=== PATIENT | male | born 1955 | race Caucasian/White ===

== ENCOUNTER 2018-06-20 16:37 | Emergency (ER) | payer MEDICARE, BC ==
[2018-06-20 17:02] VITALS: BP 121/74; PULSE 66; O2SAT 96
[2018-06-20] MEDS ORDERED: Adacel Vial IM ONE ×2 (17:09→17:22)
--- NOTE | 2018-06-20 17:12 | ERPHSYRPT ---
- History of Present Illness Time Seen by Provider: 06/20/18 17:01 Source: patient Exam Limitations: no limitations Patient Subjective Stated Complaint: left knife on top of 15 foot ladder and started to go up after it and the knife fell down and landed in his left forearm Triage Nursing Assessment: Pt c/o of a laceration on his left forearm due to a knife falling off of a ladder and landing in his arm, approx 1 cm laceration with minimal bleeding, denies any other issues at this time Physician History: 62-year-old white male arrives with complaint of laceration to the left mid forearm since just prior to arrival. According to the patient he had a knife on top of a ladder which fell approximately 15 feet and struck him on the left forearm. Patient has approximately 1.5 cm laceration to the left mid forearm anteriorly and towards the radial aspect. He has full range of motion to his left hand wrist elbow and shoulder. Good capillary refill to all fingers. Sensation intact to all fingers. Past medical history includes a fall with multiple fractures and rib fractures in the distant past. Last tetanus patient states 12 years old. Occurred: just prior to arrival Method of Injury: other (knife fell and lacerated patient's left forearm) Severity of Pain-Max: mild Severity of Pain-Current: mild Extremities Pain Location: forearm: left Modifying Factors: Improves With: nothing Associated Symptoms: none Allergies/Adverse Reactions: No Known Drug Allergies Allergy (Verified 06/20/18 17:03) Home Medications: Lisinopril 10 mg [Zestril 10 MG] 10 mg PO DAILY 06/20/18 [History] Hx Tetanus, Diphtheria Vaccination/Date Given: No - Review of Systems Constitutional: No Fever, No Chills Eyes: No Symptoms Ears, Nose, & Throat: No Symptoms Respiratory: No Cough, No Dyspnea Cardiac: No Chest Pain, No Edema, No Syncope Abdominal/Gastrointestinal: No Abdominal Pain, No Nausea, No Vomiting, No Diarrhea Genitourinary Symptoms: No Dysuria Musculoskeletal: Injury (laceration left forearm), Other (1.5 cm laceration left mid forearm towards ulnar aspect volar surface), No Arthralgias, No Back Pain, No Neck Pain, No Deformity, No Fall, No Joint Redness, No Joint Pain, No Joint Swelling, No Myalgias Skin: Other (laceration left mid forearm volar surface towards ulnar aspect) Neurological: No Dizziness, No Focal Weakness, No Sensory Changes Psychological: No Symptoms Endocrine: No Symptoms All Other Systems: Reviewed and Negative - Past Medical History Pertinent Past Medical History: Yes Cardiac History: Hypertension GI Medical History: Gallbladder Disease Other Medical History: Fell 32 feet in 2000 and ripped diaphram, broke all ribs , chest tubes in, injured lungs, broke left leg, right arm, both collar bones, damaged right kidney and only about 20-25% usage, kidney stones - Past Surgical History Past Surgical History: Yes Gastrointestinal: Cholecystectomy Musculoskeletal: Orthopedic Surgery - Social History Smoking Status: Never smoker Exposure to second hand smoke: No Drug Use: none Patient Lives Alone: No - Nursing Vital Signs Nursing Vital Signs: Initial Vital Signs Temperature 98.5 F 06/20/18 16:45 Pulse Rate 66 06/20/18 16:45 Blood Pressure 121/74 06/20/18 16:45 O2 Sat by Pulse Oximetry 96 06/20/18 16:45 Pain Scale Pain Intensity 1 - Physical Exam General Appearance: mild distress Eyes, Ears, Nose, Throat Exam: moist mucous membranes Neck Exam: non-tender, supple Cardiovascular/Respiratory Exam: chest non-tender, normal breath sounds, regular rate/rhythm, no respiratory distress Abdominal Exam: non-tender, No guarding Back Exam: normal inspection, No vertebral tenderness Shoulder Exam: normal inspection, non-tender, no evidence of injury, normal ROM Elbow/Forearm Exam: normal ROM, No normal inspection (1.5 cm laceration left mid forearm volar surface towards ulnar aspect) Wrist Exam: normal inspection, non-tender, no evidence of injury, normal ROM Hand Exam: normal inspection, non-tender, no evidence of injury, normal ROM Neuro/Tendon Exam: normal sensation, normal motor functions, normal tendon functions, no evidence tendon injury, No motor deficit, No sensory deficit, No tendon function deficit, No tendon injury visualized Mental Status Exam: alert, oriented x 3, cooperative Skin Exam: normal color, laceration (1.5 cm laceration left mid forearm volar surface towards ulnar aspect) SpO2: 96 Oxygen Delivery: Room Air - Course Nursing assessment & vital signs reviewed: Yes Ordered Tests: Active Orders 24 hr Category Date Time Status Wound Care STAT Care 06/20/18 17:09 Active Medication Summary Discontinued Medications Generic Name Dose Route Start Last Admin Trade Name Freq PRN Reason Stop Dose Admin Diphtheria/Tetanus/Acell Pertussis 0.5 ml 06/20/18 17:09 06/20/18 17:27 Adacel Vial IM 06/20/18 17:10 0.5 ml .ONCE ONE Administration Diphtheria/Tetanus/Acell Pertussis Confirm 06/20/18 17:22 Adacel Vial Administered 06/20/18 17:23 Dose 0.5 ml IM .STK-MED ONE - Progress Progress: improved Progress Note: 06/20/18 17:28 This is a 62-year-old white male who arrives with complaint of laceration to his left forearm since just prior to arrival. According to the patient, knife fell off of a 15 foot ladder striking him in the left forearm. He has a 1.5 cm laceration on the volar surface of the left mid forearm towards the ulnar aspect. He has full range of motion to the left elbow shoulder wrist hand fingers. Device Repair Technician are equal and symmetrical 5 over 5. He has good capillary refill to all fingers. Sensation intact to all fingers. Will have nurse clean the area, close area with Dermabond. Will update patient's DTaP. - Departure Time of Disposition: 17:30 Departure Disposition: Home Clinical Impression: Laceration of left forearm Qualifiers: Encounter type: initial encounter Qualified Code(s): S51.812A - Laceration without foreign body of left forearm, initial encounter Condition: Good Critical Care Time: No Instructions: Laceration Repair With Glue (DC) Additional Instructions: Return home. Keep area clean and dry. Do not apply traction to the area. Do not apply ointments to the area. Follow-up with your family doctor or return if problems or sign of infection. Return for acute distress or for severe symptoms.
== END 2018-06-20 17:43 | disposition home or self-care (01) ==
LOC: ED 16:37
DX: S51.812A Laceration without foreign body of left forearm, initial encounter (principal); W26.0XXA Contact with knife, initial encounter; Y93.9 Activity, unspecified; Y92.9 Unspecified place or not applicable; Z79.899 Other long term (current) drug therapy
CPT/HCPCS: 12001; 90471; 90715; 99283